=== PATIENT | male | born 1995 | race Two or more races ===

== ENCOUNTER 2019-04-16 22:35 | Emergency (ER) | payer OTHER ==
[~2019-04-16] VITALS: Ht 170.2 cm; Wt 77.6 kg
[~2019-04-16 22:35] MED LIST: BENADRYL25 MG PO; MEDROL8 MG PO
== END 2019-04-17 02:59 | disposition home or self-care (01) ==
LOC: ER 22:35
DX: T78.49XA Other allergy, initial encounter (principal); R05 Cough; R21 Rash and other nonspecific skin eruption; X58.XXXA Exposure to other specified factors, initial encounter

== ENCOUNTER 2021-05-05 15:20 | Outpatient (CLI) | payer OTHER | END 2021-05-05 15:35 | disposition home or self-care (01) | LOC: PPH VACUNA 15:20 | PROVIDERS: ATTEND Emergency Medicine Pediatric Emergency Medicine | DX: Z23 Encounter for immunization (principal) ==